=== PATIENT | male | born 1995 | race African-American/Black ===

== ENCOUNTER 2017-12-04 13:23 | Emergency (ER) | payer OTHER ==
[~2017-12-04] VITALS: Ht 182.9 cm; Wt 70.5 kg
[2017-12-04 13:29] VITALS: BP 135/87; PULSE 79; TEMP 97.6
[2017-12-04] MEDS ORDERED: FLOXIN OTIC DROP5 ML OT (15:46)
== END 2017-12-04 16:01 | disposition home or self-care (01) ==
LOC: COL.ER 13:23
DX: S00.412A Abrasion of left ear, initial encounter (principal); H61.22 Impacted cerumen, left ear; X58.XXXA Exposure to other specified factors, initial encounter